=== PATIENT | male | born 1970 | race Caucasian/White ===

== ENCOUNTER 2016-09-17 16:24 | Emergency (ER) | payer BC | END 2016-09-17 17:00 | disposition home or self-care (01) | LOC: ER 16:24 | DX: M54.6 Pain in thoracic spine (principal); M25.552 Pain in left hip; M54.2 Cervicalgia; M25.532 Pain in left wrist; Z88.0 Allergy status to penicillin; Z88.1 Allergy status to other antibiotic agents; V49.9XXA Car occupant (driver) (passenger) injured in unspecified traffic accident, initial encounter | CPT/HCPCS: 72050; 72072; 73110-LT; 73502-LT; 99284 ==